=== PATIENT | female | born 1995 | race African-American/Black ===

== ENCOUNTER 2022-03-29 22:35 | Emergency (ER) | payer SELFPAY ==
[~2022-03-29] VITALS: Ht 170.2 cm; Wt 70.0 kg
[2022-03-29 22:46] VITALS: BP 142/97
[2022-03-29] MEDS ORDERED: ONDANSETRON HCL 4MG/2ML INJ IV STA (23:04)
[2022-03-29] MEDS ORDERED: MORPHINE SULFATE 4 MG/ML CPJ (NOT FOR IM USE) IV STA (23:04)
[2022-03-29] MEDS ORDERED: SODIUM CHLORIDE 0.9% 1,000 ML IV ONE (23:15)
== END 2022-03-30 | disposition left against medical advice (07) ==
LOC: ER 23:27
DX: R10.12 Left upper quadrant pain (principal); K92.1 Melena; R45.1 Restlessness and agitation; R03.0 Elevated blood-pressure reading, without diagnosis of hypertension; R19.7 Diarrhea, unspecified
CPT/HCPCS: 99283; J7030